=== PATIENT | female | born 1945 | race Caucasian/White ===

== ENCOUNTER → 2021-02-08 | Outpatient (CLI) | payer MEDICARE ==
[~2021-02-08] MED LIST: ACTO35TA9 PO; DIGO0.123 PO; ELIQ5TAB PO; ENAL20TA11 PO; FURO40TA2 PO; GABA-1171 PO; ISOS1TAB36 PO; METO1TAB7 PO; POTA1TAB14 PO; PRAD75CA5 PO; PROP120C PO; PROP50TA3 PO; RALO1TAB PO; SIMV40TA20 PO; SPIR-10 PO; TRAM50TA2 PO; TYLE325T5 PO; VITA200016 PO
== END ==
LOC: M LABSMTC 11:26
PROVIDERS: ATTEND Anesthesiology
DX: Z01.812 Encounter for preprocedural laboratory examination (principal); Z20.822 Contact with and (suspected) exposure to COVID-19

== ENCOUNTER 2021-02-13 14:34 | Day surgery (SDC) | payer MEDICARE ==
[~2021-02-13] VITALS: Ht 165.1 cm; Wt 75.0 kg
[~2021-02-13 14:34] MED LIST changes: +LR 1,000 ML IV ONE
[2021-02-13] MEDS ORDERED: ACET325C5 PO (15:01)
[2021-02-13] MEDS ORDERED: LIDOCAINE VISCOUS 2% SOLN 15ML UDC As Ordered ONE (16:43)
[2021-02-13] MEDS ORDERED: CETACAINE SPRAY 5GM As Ordered ONE (16:43)
[2021-02-13] MEDS ORDERED: LIDOCAINE 2% 100MG/5ML SDV (FOR ANES.) As Ordered ONE (16:49)
[2021-02-13] MEDS ORDERED: propofoL 500 MG/50 ML VIAL As Ordered ONE (16:50)
[2021-02-13] MEDS ORDERED: fentaNYL 100 MCG/2 ML INJECTION (J3010) As Ordered ONE (16:50)
[2021-02-13] MEDS ORDERED: MIDAZOLAM INJ 2MG/2ML VIAL (J2250 PER 1MG) As Ordered ONE (16:50)
[2021-02-13 18:40] VITALS: BP 126/62
--- NOTE | 2021-02-13 18:57 | T-ECHO ---
TRANSESOPHAGEAL ECHO DATE: 02/13/2021 REFERRING PHYSICIAN: Yared Comer M.D. ANESTHESIOLOGY: Carlos Plascencia CRNA INDICATIONS: Mitral insufficiency. BRIEF HISTORY: Mrs. Whyte is a 75-year-old female who has known mitral insufficiency. Because she has also renal insufficiency, it was felt that cardiac catheterization with left ventriculogram would possess too much of a risk of renal failure and consequently, EDIE is being performed to assess the insufficiency of the valve. I met with the patient on an outpatient basis, I explained the rationale, and the expected outcomes from the procedure. I also talked about complications. She signed appropriate consent. DESCRIPTION OF PROCEDURE: The patient presented in a fasting condition. The procedure was performed in the operating room. After appropriate time-out was taken and all monitors were applied, her posterior pharynx was anesthetized using viscous Lidocaine and Cetacaine spray. She was then positioned in the left lateral decubitus position. Bite block was applied. Oxygen mask was applied over her face. Anesthesiology administered sedation. When appropriate level of sedation was accomplished, the probe was introduced into the esophagus and later the stomach without difficulty. After appropriate images were taken it was withdrawn. There were no immediate complications and the patient tolerated the procedure well. FINDINGS: The left ventricle has normal systolic function. I estimate EF around 65%. The right ventricle also appears to have normal systolic function. Both atria are severely enlarged, left more than right. The aortic valve is tricuspid. It is mildly sclerotic, but has normal mobility. There is trace insufficiency of the valve and no stenosis. Tricuspid valve appears normal. There is trace insufficiency. Calculated pulmonary artery pressure is grossly within normal limits based on fair quality of TR jet. Pulmonic valve also appears normal. No insufficiency or stenosis of the valve is seen. Mitral valve is mildly thickened and there is prolapse of anterior mitral leaflets. There is very eccentric mitral insufficiency jet oriented towards the left lateral wall. I could not demonstrate reversal of flow in pulmonary veins, but overall I estimate the severity of insufficiency in the moderately severe range. Left atrial appendage is rather large and at its bottom there is a small echodensity raising suspicion for thrombus. Both left and right-sided pulmonary veins are of large caliber, but I could not demonstrate systolic flow reversal to support diagnosis of severe mitral insufficiency. Mild atherosclerosis is seen in the aortic arch and descending aorta. CONCLUSION: 1. Preserved LV systolic function. 2. Preserved RV systolic function. 3. Trace aortic insufficiency. 4. Trace tricuspid insufficiency. 5. Competent pulmonic valve. 6. Intact atrial septum. 7. Very large left atrial appendage with possible small thrombus at its tip. 8. Normal flow pattern in both the right and left-sided pulmonary veins. 9. Mitral valve prolapse resulting in [id number] mitral insufficiency. COMMENTS: I talked with the patient and her daughter about the result of the procedure. my inclination would be to continue medical management. Results were communicated to Vega Cordero
== END 2021-02-13 18:50 | disposition home or self-care (01) ==
LOC: M SDC 14:34
PROVIDERS: ATTEND Internal Medicine Cardiovascular Disease
DX: I34.1 Nonrheumatic mitral (valve) prolapse (principal); I34.0 Nonrheumatic mitral (valve) insufficiency; I48.91 Unspecified atrial fibrillation; I10 Essential (primary) hypertension; N28.9 Disorder of kidney and ureter, unspecified; E78.00 Pure hypercholesterolemia, unspecified; E05.90 Thyrotoxicosis, unspecified without thyrotoxic crisis or storm; M54.9 Dorsalgia, unspecified; M19.90 Unspecified osteoarthritis, unspecified site; Z91.041 Radiographic dye allergy status; Z88.8 Allergy status to other drugs, medicaments and biological substances; Z79.899 Other long term (current) drug therapy; Z79.01 Long term (current) use of anticoagulants
CPT/HCPCS: 93312; 93320; 93325; J2250; J3010

== ENCOUNTER → 2021-09-10 | Outpatient (REF) | payer MEDICARE ==
[~2021-09-10] MED LIST changes: +ACET325C5 PO; -LR 1,000 ML IV ONE
[2021-09-10 18:28] LABS: APPEARANCE, URINE HAZY (CLEAR); BACTERIA, URINE AUTO NEGATIVE (NEGATIVE); BILIRUBIN, URINE AUTO NEGATIVE (NEGATIVE); BLOOD, URINE BLOOD 3+ (NEGATIVE); COLOR, URINE STRAW (YELLOW); GLUCOSE, URINE (UA) AUTO NEGATIVE (NEGATIVE); KETONE, URINE AUTO NEGATIVE (NEGATIVE); LEUKOCYTE ESTERASE, URINE AUTO 2+ (NEGATIVE); MUCUS, URINE SMALL (NEGATIVE); NITRITE, URINE AUTO NEGATIVE (NEGATIVE); PROTEIN, URINE AUTO 1+ mg/dL (NEGATIVE); RBC, URINE AUTO 19 /HPF (0-3); SPECIFIC GRAVITY URINE AUTO 1.009 (1.002-1.035); SQUAMOUS EPITHELIAL CELL UR AU 0 /HPF (0-6); UROBILINOGEN, URINE AUTO 0.2 mg/dL (0.0-2.0); WBC, URINE AUTO 14 /HPF (0-3)
== END ==
LOC: M SMT 17:31
PROVIDERS: ATTEND Urology
DX: N39.41 Urge incontinence (principal)

== ENCOUNTER 2022-05-26 15:47 | Inpatient (IN) | payer MEDICARE ==
[~2022-05-26] VITALS: Ht 160 cm; Wt 67.8 kg
[2022-05-26 17:21] LABS: BASO % 0.4 % (0.0-1.0); EOS # 0.2 10^3/uL (0.0-0.5); EOS % 1.8 % (0.0-3.0); HEMATOCRIT 25.4 % (36.0-47.0); HEMOGLOBIN 7.9 g/dl (12.0-15.5); LYMPH # 0.6 10^3/uL (1.5-5.0); LYMPH % 6.9 % (24.0-44.0); MEAN CORPUSCULAR HEMOGLOBIN 29.3 pg (27.0-33.0); MEAN CORPUSCULAR HGB CONC 31.1 g/dl (32.0-36.5); MEAN CORPUSCULAR VOLUME 94.1 fl (80.0-96.0); MONO # 0.4 10^3/uL (0.0-0.8); NEUTROPHILS % 85.4 % (36.0-66.0); PLATELET COUNT, AUTOMATED 158 10^3/uL (150-450); WHITE BLOOD COUNT 8.1 10^3/uL (4.0-10.0)
[2022-05-26 18:00] LABS: RSV AMPLIFICATION NEGATIVE (NEGATIVE)
[2022-05-26 18:42] LABS: CALCIUM LEVEL 8.7 MG/DL (8.8-10.2); CREATININE FOR GFR 8.11 MG/DL (0.55-1.30); GLOMERULAR FILTRATION RATE 5.1 (>39); POTASSIUM SERUM 5.7 MEQ/L (3.5-5.1)
[2022-05-26] MEDS ORDERED: PATIROMER SORBITEX CALCIUM 8.4 GM POWDER PACKET (VELTASSA) PO ONE (18:45)
[2022-05-26 18:47] LABS: VENOUS BASE EXCESS -11.5 (-2.0-2.0); VENOUS HCO3 15.3 MEQ/L (23.0-27.0); VENOUS O2 SATURATION 61.4 % (60.0-80.0); VENOUS PARTIAL PRESSURE CO2 38.2 mmHg (38.0-50.0); VENOUS PARTIAL PRESSURE O2 34.8 mmHg (30.0-50.0); VENOUS STANDARD HCO3 14.7 MEQ/L; VENOUS TOTAL CO2 16.5 MEQ/L (24.0-28.0)
[2022-05-26] MEDS ORDERED: SODIUM BICARBONATE 100 MEQ in D5W 1,000 ML IV SCH (18:50)
[2022-05-26 19:06] LABS: DIGOXIN LEVEL 0.3 NG/ML (0.5-2.0)
[2022-05-26] MEDS ORDERED: HOME MED LIST COMPLETE! XX SCH (19:55)
[2022-05-26] MEDS ORDERED: VITA100093 PO (19:55)
[2022-05-26] MEDS ORDERED: APIXABAN 5 MG TAB (ELIQUIS) PO SCH (21:00)
[2022-05-26] MEDS ORDERED: ACETAMINOPHEN TAB 650MG DOSE (2X325MG) PO PRN (21:10)
[2022-05-26] MEDS ORDERED: MOM 30ML SUSPENSION UDC PO PRN (21:10)
[2022-05-26] MEDS: SIMVASTATIN 40 MG TAB PO SCH (23:00)
[2022-05-26] MEDS: GABAPENTIN 100 MG CAP PO SCH (23:00)
[2022-05-26] MEDS: DOCUSATE SODIUM 100MG CAPSULE PO SCH (23:01)
[2022-05-27] VITALS (10 sets, daily range): BP systolic 111–158; BP diastolic 59–83
[2022-05-27] MEDS ORDERED: SODIUM BICARBONATE 75 MEQ in NS 0.45% 1,000 ML IV SCH (02:00)
[2022-05-27] MEDS: propylthiouraciL 50 MG TAB PO SCH ×4 (02:26→20:12)
[2022-05-27 06:25] LABS: HEMATOCRIT 22.4 % (36.0-47.0); HEMOGLOBIN 7.3 g/dl (12.0-15.5); MEAN CORPUSCULAR HEMOGLOBIN 30.4 pg (27.0-33.0); MEAN CORPUSCULAR HGB CONC 32.6 g/dl (32.0-36.5); MEAN CORPUSCULAR VOLUME 93.3 fl (80.0-96.0); PLATELET COUNT, AUTOMATED 142 10^3/uL (150-450); WHITE BLOOD COUNT 6.5 10^3/uL (4.0-10.0)
[2022-05-27 07:08] LABS: ALBUMIN 2.9 GM/DL (3.2-5.2); BILIRUBIN,TOTAL 0.3 MG/DL (0.2-1.0); CALCIUM LEVEL 8.8 MG/DL (8.8-10.2); CREATININE FOR GFR 7.91 MG/DL (0.55-1.30); GLOMERULAR FILTRATION RATE 5.2 (>39); MAGNESIUM LEVEL 1.2 MG/DL (1.8-2.4); POTASSIUM SERUM 5.5 MEQ/L (3.5-5.1); TOTAL PROTEIN 5.9 GM/DL (6.4-8.2)
[2022-05-27] MEDS: GABAPENTIN 100 MG CAP PO SCH ×2 (08:45→20:12)
[2022-05-27] MEDS: DOCUSATE SODIUM 100MG CAPSULE PO SCH ×2 (08:45→20:12)
[2022-05-27] MEDS: METOPROLOL SUCC (TopROL XL) 50MG **XL** TAB PO SCH (08:47)
[2022-05-27] MEDS: MAG SULF 1GM/100ML (MAG RUN) 1 GM in IV 1 EA IV SCH ×4 (08:48→12:49)
[2022-05-27] MEDS ORDERED: FUROSEMIDE 40 MG TAB PO SCH (09:00)
[2022-05-27 09:15] LABS: INR 1.27; PROTHROMBIN TIME 16.4 SECONDS (12.7-14.5)
[2022-05-27 09:16] LABS: PARTIAL THROMBOPLASTIN TIME 29.8 SECONDS (25.9-37.0)
[2022-05-27 09:45] LABS: PERCENT SATURATION 44.5 % (13.2-45.0)
[2022-05-27] MEDS ORDERED: PATIROMER SORBITEX CALCIUM 8.4 GM POWDER PACKET (VELTASSA) PO ONE (10:00)
[2022-05-27 10:35] LABS: HEPATITIS B CORE ANTIBODY IGM NEGATIVE (NEGATIVE); HEPATITIS B SURFACE ANTIBODY NEGATIVE (POSITIVE); HEPATITIS B SURFACE ANTIGEN NEGATIVE (NEGATIVE); HEPATITIS C VIRUS ABY INDEX < 0.0 INDEX (<0.8)
[2022-05-27 11:52] LABS: APPEARANCE, URINE MANUAL CLEAR (CLEAR); BILIRUBIN, URINE MANUAL NEGATIVE (NEGATIVE); BLOOD URINE MANUAL POSITIVE (NEGATIVE); COLOR, URINE MANUAL LT YELLOW (YELLOW); GLUCOSE, URINE (UA) MANUAL NEGATIVE (NEGATIVE); KETONE, URINE MANUAL NEGATIVE (NEGATIVE); LEUKOCYTE ESTERASE, URINE MAN NEGATIVE (NEGATIVE); NITRITE, URINE MANUAL NEGATIVE (NEGATIVE); PROTEIN, URINE MANUAL 1+ mg/dL (NEGATIVE); UROBILINOGEN, URINE MANUAL NORMAL (NORMAL)
[2022-05-27 12:15] LABS: BACTERIA, URINE NONE SEEN; HYALINE CAST, URINE NONE SEEN /lpf (0-1); MUCUS, URINE SMALL AMOUNT (NEGATIVE); RBC, URINE 15-20 /hpf (0-3); SQUAMOUS EPITHELIAL CELL URINE SMALL AMOUNT /hpf (SMALL AMT); WBC, URINE NONE SEEN /hpf (0-3)
[2022-05-27] MEDS: SIMVASTATIN 40 MG TAB PO SCH (20:12)
[2022-05-27 20:49] LABS: CALCIUM LEVEL 8.7 MG/DL (8.8-10.2); CREATININE FOR GFR 7.48 MG/DL (0.55-1.30); GLOMERULAR FILTRATION RATE 5.6 (>39); MAGNESIUM LEVEL 2.5 MG/DL (1.8-2.4); POTASSIUM SERUM 4.7 MEQ/L (3.5-5.1)
[2022-05-27] MEDS: HEPARIN SOD (PORCINE) 5000UNITS/ML 1ML VIAL/SYRINGE SQ SCH (22:00)
[2022-05-28] MEDS: HEPARIN SOD (PORCINE) 5000UNITS/ML 1ML VIAL/SYRINGE SQ SCH (05:34)
[2022-05-28 05:39] VITALS: BP 109/71
[2022-05-28 06:00] LABS: HEMATOCRIT 26.5 % (36.0-47.0); HEMOGLOBIN 8.6 g/dl (12.0-15.5); MEAN CORPUSCULAR HEMOGLOBIN 29.8 pg (27.0-33.0); MEAN CORPUSCULAR HGB CONC 32.5 g/dl (32.0-36.5); MEAN CORPUSCULAR VOLUME 91.7 fl (80.0-96.0); PLATELET COUNT, AUTOMATED 123 10^3/uL (150-450); RED BLOOD COUNT 2.89 10^6/uL (4.00-5.40); WHITE BLOOD COUNT 6.5 10^3/uL (4.0-10.0)
[2022-05-28 07:05] LABS: CALCIUM LEVEL 8.2 MG/DL (8.8-10.2); CREATININE FOR GFR 7.33 MG/DL (0.55-1.30); GLOMERULAR FILTRATION RATE 5.7 (>39); POTASSIUM SERUM 4.6 MEQ/L (3.5-5.1)
[2022-05-28] MEDS ORDERED: SODIUM CHLORIDE 0.9% 1000ML IV PRN (07:15)
[2022-05-28] MEDS: propylthiouraciL 50 MG TAB PO SCH ×3 (09:39→21:27)
[2022-05-28] MEDS: DIGOXIN 0.125 MG TAB PO SCH (09:39)
[2022-05-28] MEDS: GABAPENTIN 100 MG CAP PO SCH ×2 (09:39→21:27)
[2022-05-28] MEDS: DOCUSATE SODIUM 100MG CAPSULE PO SCH ×2 (09:39→21:27)
[2022-05-28] MEDS: METOPROLOL SUCC (TopROL XL) 50MG **XL** TAB PO SCH (09:40)
[2022-05-28] MEDS ORDERED: ceFAZolin SOD 2 GM in IV 1 EA IV ONE (10:15)
[2022-05-28] MEDS ORDERED: ceFAZolin 2 GM/D5W 50 ML IV BAG (J0690 PER 500MG) As Ordered ONE (10:17)
[2022-05-28] MEDS ORDERED: LIDOCAINE 1% MDV 20ML VIAL As Ordered ONE (10:34)
[2022-05-28] MEDS ORDERED: MIDAZOLAM INJ 2MG/2ML VIAL (J2250 PER 1MG) As Ordered ONE (10:34)
[2022-05-28] MEDS ORDERED: fentaNYL 100 MCG/2 ML INJECTION As Ordered ONE (10:34)
[2022-05-28] MEDS ORDERED: fentaNYL 100 MCG/2 ML INJECTION IV ONE (11:30)
[2022-05-28] MEDS ORDERED: MIDAZOLAM INJ 2MG/2ML VIAL (J2250 PER 1MG) IV ONE (11:30)
[2022-05-28] MEDS ORDERED: ONDANSETRON 4MG 2ML VIAL As Ordered ONE (13:18)
[2022-05-28] MEDS ORDERED: ONDANSETRON 4MG 2ML VIAL IV PRN (13:20)
[2022-05-28] MEDS ORDERED: ONDANSETRON 4MG 2ML VIAL IV ONE (17:30)
[2022-05-28 20:33] VITALS: BP 131/77
[2022-05-28] MEDS: SIMVASTATIN 40 MG TAB PO SCH (21:27)
[2022-05-29 06:00] VITALS: BP 115/63
[2022-05-29] MEDS ORDERED: SODIUM CHLORIDE 0.9% 1000ML IV PRN (07:10)
[2022-05-29] MEDS ORDERED: DARBEPOETIN 100 MCG/0.5 ML *DIALYSIS* SYRINGE (J0882) IV SCH (07:10)
[2022-05-29 07:18] LABS: HEMATOCRIT 27.5 % (36.0-47.0); HEMOGLOBIN 8.7 g/dl (12.0-15.5); MEAN CORPUSCULAR HEMOGLOBIN 29.9 pg (27.0-33.0); MEAN CORPUSCULAR HGB CONC 31.6 g/dl (32.0-36.5); MEAN CORPUSCULAR VOLUME 94.5 fl (80.0-96.0); PLATELET COUNT, AUTOMATED 112 10^3/uL (150-450); RED BLOOD COUNT 2.91 10^6/uL (4.00-5.40); WHITE BLOOD COUNT 5.5 10^3/uL (4.0-10.0)
[2022-05-29 07:56] LABS: CREATININE FOR GFR 4.85 MG/DL (0.55-1.30); GLOMERULAR FILTRATION RATE 9.2 (>39); POTASSIUM SERUM 4.6 MEQ/L (3.5-5.1)
[2022-05-29] MEDS: propylthiouraciL 50 MG TAB PO SCH ×3 (08:08→20:28)
[2022-05-29] MEDS: GABAPENTIN 100 MG CAP PO SCH ×2 (08:08→20:27)
[2022-05-29] MEDS: DOCUSATE SODIUM 100MG CAPSULE PO SCH ×2 (08:08→20:27)
[2022-05-29] MEDS: METOPROLOL SUCC (TopROL XL) 50MG **XL** TAB PO SCH (08:08)
[2022-05-29] MEDS: APIXABAN 5 MG TAB (ELIQUIS) PO SCH ×2 (08:08→20:27)
[2022-05-29 13:54] VITALS: BP 126/79
[2022-05-29] MEDS: SIMVASTATIN 40 MG TAB PO SCH (20:28)
[2022-05-29 21:00] VITALS: BP 105/69
[2022-05-30 06:06] VITALS: BP 135/82
[2022-05-30 06:23] LABS: HEMATOCRIT 27.5 % (36.0-47.0); HEMOGLOBIN 8.7 g/dl (12.0-15.5); MEAN CORPUSCULAR HEMOGLOBIN 30.3 pg (27.0-33.0); MEAN CORPUSCULAR HGB CONC 31.6 g/dl (32.0-36.5); MEAN CORPUSCULAR VOLUME 95.8 fl (80.0-96.0); PLATELET COUNT, AUTOMATED 120 10^3/uL (150-450); RED BLOOD COUNT 2.87 10^6/uL (4.00-5.40); WHITE BLOOD COUNT 6.6 10^3/uL (4.0-10.0)
[2022-05-30 07:01] LABS: CALCIUM LEVEL 8.8 MG/DL (8.8-10.2); CREATININE FOR GFR 3.3 MG/DL (0.55-1.30); GLOMERULAR FILTRATION RATE 14.4 (>39); POTASSIUM SERUM 4.8 MEQ/L (3.5-5.1)
[2022-05-30] MEDS: propylthiouraciL 50 MG TAB PO SCH ×2 (08:35→15:50)
[2022-05-30] MEDS: APIXABAN 5 MG TAB (ELIQUIS) PO SCH (08:35)
[2022-05-30] MEDS: DOCUSATE SODIUM 100MG CAPSULE PO SCH (08:35)
[2022-05-30] MEDS: GABAPENTIN 100 MG CAP PO SCH (08:35)
[2022-05-30 09:00] VITALS: BP 108/76
[2022-05-30] MEDS: METOPROLOL SUCC (TopROL XL) 50MG **XL** TAB PO SCH (09:00)
[2022-05-30] MEDS: DIGOXIN 0.125 MG TAB PO SCH (09:02)
[2022-05-30 14:00] VITALS: BP 120/78
[2022-05-30] MEDS ORDERED: METO1TAB32 PO (14:25)
== END 2022-05-30 16:58 | disposition home health service (06) | DRG 674 ==
LOC: M ED 15:47 → M ED INP 21:10 → M MSPAV 05-27 00:03
PROVIDERS: ADMIT Family Medicine; ATTEND Internal Medicine
PROC: 30233N1 Transfusion of Nonautologous Red Blood Cells into Peripheral Vein, Percutaneous Approach (ICD-10-PCS; 2022-05-27)
PROC: 02H633Z Insertion of Infusion Device into Right Atrium, Percutaneous Approach (ICD-10-PCS; 2022-05-28)
PROC: 5A1D70Z Performance of Urinary Filtration, Intermittent, Less than 6 Hours Per Day (ICD-10-PCS; 2022-05-28)
PROC: 0JH63XZ Insertion of Tunneled Vascular Access Device into Chest Subcutaneous Tissue and Fascia, Percutaneous Approach (ICD-10-PCS; principal; 2022-05-28 10:00)
DX: N17.9 Acute kidney failure, unspecified (principal); I13.2 Hypertensive heart and chronic kidney disease with heart failure and with stage 5 chronic kidney disease, or end stage renal disease; E87.2 Acidosis; I47.2 Ventricular tachycardia; E87.1 Hypo-osmolality and hyponatremia; I50.32 Chronic diastolic (congestive) heart failure; I48.91 Unspecified atrial fibrillation; E05.90 Thyrotoxicosis, unspecified without thyrotoxic crisis or storm; N18.6 End stage renal disease; E78.5 Hyperlipidemia, unspecified; E86.0 Dehydration; E87.5 Hyperkalemia; Z79.01 Long term (current) use of anticoagulants; D63.1 Anemia in chronic kidney disease; Z79.899 Other long term (current) drug therapy; Z88.8 Allergy status to other drugs, medicaments and biological substances; Z99.2 Dependence on renal dialysis; Z90.49 Acquired absence of other specified parts of digestive tract

== ENCOUNTER → 2022-12-11 | Outpatient (CLI) | payer MEDICARE ==
[~2022-12-11] MED LIST changes: +METO1TAB32 PO; +VITA100093 PO
== END ==
LOC: M RAD 10:14
PROVIDERS: ATTEND Internal Medicine Nephrology
DX: N18.6 End stage renal disease (principal)

== ENCOUNTER → 2023-02-03 | Day surgery (SDC) | payer MEDICARE ==
[~2023-02-03] VITALS: Ht 165.1 cm; Wt 66.6 kg
[~2023-02-03] MED LIST changes: +BUPIVACAINE/EPIN 0.5% 30ML VIAL As Ordered ONE; +D5W/0.45% SODIUM CHLORIDE 1,000 ML IV SCH; +ELIQ2.5T PO; +ENAL1TAB52 PO; -ENAL20TA11 PO; +HEPARIN SOD (PORCINE) 5000UNITS/ML 1ML VIAL/SYRINGE As Ordered ONE; +LIDOCAINE 1% SDV 30ML VIAL As Ordered ONE; +LR 1,000 ML IV SCH; +PAPAVERINE HCL 60MG 2ML VIAL (30MG/ML) As Ordered ONE; +POTA-298 PO; -POTA1TAB14 PO; +ceFAZolin SOD 2 GM in IV 1 EA IV ONE; +propofoL 500 MG/50 ML VIAL As Ordered ONE
[2023-02-03 11:29] VITALS: BP 155/97
== END | disposition home or self-care (01) ==
LOC: M SDC 10:46
PROVIDERS: ATTEND Surgery Vascular Surgery
DX: Z53.8 Procedure and treatment not carried out for other reasons (principal)
CPT/HCPCS: 36415; 84132; J2440

== ENCOUNTER 2023-06-30 08:00 | Day surgery (SDC) | payer MEDICARE ==
[~2023-06-30] VITALS: Ht 165.1 cm; Wt 69.9 kg
[~2023-06-30 08:00] MED LIST changes: -BUPIVACAINE/EPIN 0.5% 30ML VIAL As Ordered ONE; -D5W/0.45% SODIUM CHLORIDE 1,000 ML IV SCH; -HEPARIN SOD (PORCINE) 5000UNITS/ML 1ML VIAL/SYRINGE As Ordered ONE; -LR 1,000 ML IV SCH; -ceFAZolin SOD 2 GM in IV 1 EA IV ONE; -propofoL 500 MG/50 ML VIAL As Ordered ONE
[2023-06-30] MEDS ORDERED: LIDOCAINE 2% 100MG/5ML SDV (FOR ANES.) As Ordered ONE (08:35)
[2023-06-30] MEDS ORDERED: fentaNYL 100 MCG/2 ML INJECTION As Ordered ONE (08:35)
[2023-06-30] MEDS ORDERED: MIDAZOLAM INJ 2MG/2ML VIAL As Ordered ONE (08:35)
[2023-06-30] MEDS ORDERED: propofoL 200 MG/20 ML VIAL As Ordered ONE (08:35)
[2023-06-30] MEDS ORDERED: ceFAZolin SOD 2 GM in IV 1 EA IV ONE (09:25)
[2023-06-30] MEDS ORDERED: ROCURONIUM BROMIDE 50MG/5ML VIAL As Ordered ONE (09:33)
[2023-06-30 09:55] LABS: HEMATOCRIT 31.9 % (36.0-47.0); HEMOGLOBIN 10.3 g/dl (12.0-15.5); MEAN CORPUSCULAR HEMOGLOBIN 32.4 pg (27.0-33.0); MEAN CORPUSCULAR HGB CONC 32.3 g/dl (32.0-36.5); MEAN CORPUSCULAR VOLUME 100.3 fl (80.0-96.0); PLATELET COUNT, AUTOMATED 166 10^3/uL (150-450); RED BLOOD COUNT 3.18 10^6/uL (4.00-5.40); WHITE BLOOD COUNT 7.5 10^3/uL (4.0-10.0)
[2023-06-30 10:07] LABS: INR 1.16; PROTHROMBIN TIME 14.5 SECONDS (12.5-14.5)
[2023-06-30 10:08] LABS: PARTIAL THROMBOPLASTIN TIME 27.9 SECONDS (24.8-34.2)
[2023-06-30 10:15] LABS: CALCIUM LEVEL 8.8 MG/DL (8.3-10.6); CREATININE FOR GFR 3.87 MG/DL (0.55-1.30); GLOMERULAR FILTRATION RATE 11.9 (>32)
[2023-06-30] MEDS ORDERED: PHENYLephrine 500MCG 5ML (100MCG/ML) SYRINGE As Ordered ONE (10:18)
[2023-06-30] MEDS ORDERED: ONDANSETRON 4MG 2ML VIAL As Ordered ONE (10:23)
[2023-06-30] MEDS ORDERED: ACETAMINOPHEN 1000MG 100ML IV BAG As Ordered ONE (10:26)
[2023-06-30] MEDS ORDERED: ePHEDrine SULFATE 25 MG/5 ML(5MG/ML) SYRINGE As Ordered ONE (10:30)
[2023-06-30] MEDS ORDERED: HEPARIN SOD (PORCINE) 5000UNITS/ML 1ML VIAL/SYRINGE As Ordered ONE (10:52)
[2023-06-30] MEDS ORDERED: THROMBIN 20,000 UNITS KIT As Ordered ONE (11:05)
[2023-06-30] MEDS ORDERED: THROMBIN 5,000 UNITS VIAL As Ordered ONE (11:06)
[2023-06-30] MEDS ORDERED: fentaNYL 100 MCG/2 ML INJECTION IV PRN (11:45)
[2023-06-30] MEDS ORDERED: D5W/0.2% SODIUM CHLORIDE 1,000 ML IV ONE (11:45)
[2023-06-30] MEDS ORDERED: D5W/0.2% SODIUM CHLORIDE 1,000 ML IV SCH (11:50)
[2023-06-30] MEDS ORDERED: oxyCODONE 5MG TAB PO PRN (12:35)
[2023-06-30 13:35] VITALS: BP 143/76; TEMP 97; O2SAT 98
== END 2023-06-30 13:56 | disposition home or self-care (01) ==
LOC: M SDC 08:00
PROVIDERS: ATTEND Surgery Vascular Surgery
DX: I13.2 Hypertensive heart and chronic kidney disease with heart failure and with stage 5 chronic kidney disease, or end stage renal disease (principal); N18.6 End stage renal disease; I50.9 Heart failure, unspecified; I48.91 Unspecified atrial fibrillation; D63.1 Anemia in chronic kidney disease; E03.9 Hypothyroidism, unspecified; Z79.01 Long term (current) use of anticoagulants; Z79.899 Other long term (current) drug therapy
CPT/HCPCS: 36415; 36821; 80048; 85027; 85610; 85730; 86850; 86900; 86901; J0131; J0690; J1100; J2250; J2371; J2405; J2440; J3010

== ENCOUNTER 2025-03-28 12:05 | Inpatient (IN) | payer MEDICARE ==
[~2025-03-28] VITALS: Ht 165.1 cm; Wt 54.6 kg
[~2025-03-28 12:05] MED LIST changes: -LIDOCAINE 1% SDV 30ML VIAL As Ordered ONE; -PAPAVERINE HCL 60MG 2ML VIAL (30MG/ML) As Ordered ONE
[2025-03-28 14:54] LABS: BASO # 0.0 10^3/uL (0.0-0.2); BASO % 0.4 % (0.0-1.0); EOS # 0.0 10^3/uL (0.0-0.5); EOS % 0.4 % (0.0-3.0); LYMPH # 0.6 10^3/uL (1.5-5.0); LYMPH % 5.6 % (24.0-44.0); MONO # 0.4 10^3/uL (0.0-0.8); MONO % 4.2 % (2.0-8.0); NEUTROPHILS # 8.7 10^3/uL (1.5-8.5); NEUTROPHILS % 89.1 % (36.0-66.0); PLATELET COUNT, AUTOMATED 155 10^3/uL (150-450)
[2025-03-28 15:07] LABS: INR 1.53
[2025-03-28 15:28] LABS: ALT/SGPT 21.0 U/L (7.0-40); AST/SGOT 34.0 U/L (<34); CALCIUM LEVEL 9.0 MG/DL (8.3-10.6); CARBON DIOXIDE LEVEL 26.0 MMOL/L (20-31); CHLORIDE LEVEL 96.0 MMOL/L (98-107); CREATININE FOR GFR 5.06 MG/DL (0.55-1.30); DIGOXIN LEVEL 2.1 NG/ML (0.8-2.0); GLOMERULAR FILTRATION RATE 8.1 (>32); MAGNESIUM LEVEL 1.6 MG/DL (1.8-2.4); POTASSIUM SERUM 5.1 MMOL/L (3.5-5.1); SODIUM LEVEL 136.0 MMOL/L (136-145)
[2025-03-28 15:30] LABS: FREE T4 1.04 NG/DL (0.89-1.76)
[2025-03-28] MEDS ORDERED: ACET-897 PO (16:27)
[2025-03-28] MEDS ORDERED: MIDO5TA PO (16:43)
[2025-03-28] MEDS ORDERED: FLUD0.1T PO (16:43)
[2025-03-28] MEDS ORDERED: HOME MED LIST COMPLETE! XX SCH (16:45)
[2025-03-28] MEDS: BOOSTRIX VACCINE (TETANUS/DIPHTH/ACEL. PERTUSSIS) 0.5 ML SYR IM ONE (17:16)
[2025-03-28] MEDS: FUROSEMIDE 100 MG/10 ML VIAL IV ONE (18:31)
[2025-03-29] VITALS (10 sets, daily range): BP systolic 112–167; BP diastolic 56–88; TEMP 96.8–99; O2SAT 90–100
[2025-03-29] MEDS: APIXABAN 2.5 MG TAB PO SCH (01:08)
[2025-03-29] MEDS: SIMVASTATIN 40 MG TAB PO SCH (01:09)
[2025-03-29] MEDS: GABAPENTIN 100 MG CAP PO SCH (01:09)
[2025-03-29] MEDS ORDERED: SODIUM CHLORIDE 0.9% 1000 ML IV PRN (06:00)
[2025-03-29] MEDS ORDERED: LIDOCAINE 1% SDV 5 ML VIAL SC PRN (06:00)
[2025-03-29] MEDS ORDERED: HEPARIN 1,000 UNITS/ML 10 ML VIAL (FOR RADIOLOGY & DIALYSIS ONLY) IV PRN (06:00)
[2025-03-29 06:47] LABS: PLATELET COUNT, AUTOMATED 156 10^3/uL (150-450)
[2025-03-29 07:12] LABS: CALCIUM LEVEL 9.0 MG/DL (8.3-10.6); CARBON DIOXIDE LEVEL 26.0 MMOL/L (20-31); CHLORIDE LEVEL 95.0 MMOL/L (98-107); CREATININE FOR GFR 5.43 MG/DL (0.55-1.30); DIGOXIN LEVEL 2.2 NG/ML (0.8-2.0); GLOMERULAR FILTRATION RATE 7.4 (>32); POTASSIUM SERUM 4.9 MMOL/L (3.5-5.1); SODIUM LEVEL 135.0 MMOL/L (136-145)
[2025-03-29] MEDS: VITAMIN D 1,000 INTERNATIONAL UNITS TABLET PO SCH (07:58)
[2025-03-29] MEDS ORDERED: MIDODRINE 5 MG TAB PO SCH (08:00)
[2025-03-29] MEDS ORDERED: FLUDROCORTISONE ACETATE 0.1 MG TAB PO SCH (09:00)
[2025-03-29] MEDS ORDERED: RALOXIFENE 60MG TABLET (PATIENT'S OWN MED) PO SCH (09:00)
[2025-03-29] MEDS: HEPARIN 1,000 UNITS/ML 10 ML VIAL (FOR RADIOLOGY & DIALYSIS ONLY) XX SCH (10:01)
[2025-03-29] MEDS: METOPROLOL SUCC. 50 MG *XL* TAB PO SCH (13:48)
[2025-03-29] MEDS: ACETAMINOPHEN 325 MG TAB PO PRN (14:02)
[2025-03-30] VITALS: BP 122/60; TEMP 96.9; O2SAT 95
[2025-03-30 03:40] VITALS: BP 130/63; TEMP 97; O2SAT 97
[2025-03-30 04:00] VITALS: BP 122/60; TEMP 96.9; O2SAT 95
[2025-03-30 06:29] LABS: BASO # 0.0 10^3/uL (0.0-0.2); BASO % 0.4 % (0.0-1.0); EOS # 0.1 10^3/uL (0.0-0.5); EOS % 0.9 % (0.0-3.0); LYMPH # 0.6 10^3/uL (1.5-5.0); LYMPH % 7.6 % (24.0-44.0); MONO # 0.6 10^3/uL (0.0-0.8); MONO % 6.8 % (2.0-8.0); NEUTROPHILS # 6.8 10^3/uL (1.5-8.5); NEUTROPHILS % 84.1 % (36.0-66.0); PLATELET COUNT, AUTOMATED 144 10^3/uL (150-450)
[2025-03-30 07:01] LABS: CALCIUM LEVEL 9.0 MG/DL (8.3-10.6); CARBON DIOXIDE LEVEL 24.0 MMOL/L (20-31); CHLORIDE LEVEL 102.0 MMOL/L (98-107); CREATININE FOR GFR 3.02 MG/DL (0.55-1.30); GLOMERULAR FILTRATION RATE 15.0 (>32); POTASSIUM SERUM 4.3 MMOL/L (3.5-5.1); SODIUM LEVEL 139.0 MMOL/L (136-145)
[2025-03-30 07:58] VITALS: BP 123/62; TEMP 97; O2SAT 95
[2025-03-30] MEDS ORDERED: ATROPINE SULFATE 1% OPHTH SOLN 2 ML BTL SL PRN (10:10)
[2025-03-30] MEDS ORDERED: ONDANSETRON 4MG ORAL DISINTEGRATING TAB PO PRN (10:10)
[2025-03-30] MEDS: ACETAMINOPHEN 325 MG TAB PO PRN (11:04)
[2025-03-30] MEDS: MORPHINE 10 MG/0.5 ML ORAL CONCENTRATE SOLUTION U/D SL PRN ×2 (12:06→19:09)
[2025-03-30] MEDS: MORPHINE 4 MG/ML 1 ML VIAL IV ONE (12:42)
[2025-03-30] MEDS: LORazepam 1 MG TAB PO PRN (21:28)
[2025-04-01] MEDS: HYOSCYAMINE SULFATE 0.125 MG SUBL TABLET PO PRN (06:56)
== END 2025-04-01 09:37 | disposition expired | DRG 91 ==
LOC: EDBD 12:05 → M ED 12:05 → M ED INP 18:00 → M PCU 03-29 01:55 → M MS5PR 03-30 13:00
PROVIDERS: ADMIT Internal Medicine; ATTEND Internal Medicine
PROC: 5A1D70Z Performance of Urinary Filtration, Intermittent, Less than 6 Hours Per Day (ICD-10-PCS; principal; 2025-03-29)
PROC: B246ZZZ Ultrasonography of Right and Left Heart (ICD-10-PCS; 2025-03-29)
DX: R29.6 Repeated falls (principal); N18.6 End stage renal disease; I50.32 Chronic diastolic (congestive) heart failure; I13.2 Hypertensive heart and chronic kidney disease with heart failure and with stage 5 chronic kidney disease, or end stage renal disease; R53.1 Weakness; E05.90 Thyrotoxicosis, unspecified without thyrotoxic crisis or storm; I48.91 Unspecified atrial fibrillation; I95.1 Orthostatic hypotension; G62.9 Polyneuropathy, unspecified; Z51.5 Encounter for palliative care; Z66 Do not resuscitate; E87.5 Hyperkalemia; I46.9 Cardiac arrest, cause unspecified; D64.9 Anemia, unspecified; M81.0 Age-related osteoporosis without current pathological fracture; Z79.01 Long term (current) use of anticoagulants; Z79.899 Other long term (current) drug therapy; Z99.2 Dependence on renal dialysis; Z88.8 Allergy status to other drugs, medicaments and biological substances; Z91.048 Other nonmedicinal substance allergy status; Z91.041 Radiographic dye allergy status